=== PATIENT | male | born 1995 | race Caucasian/White ===

== ENCOUNTER 2019-03-26 17:59 | Emergency (ER) | payer OTHER ==
[~2019-03-26] VITALS: Ht 172.7 cm; Wt 80.7 kg
[2019-03-26 18:02] VITALS: Ht 172.7 cm; Wt 80.7 kg
[2019-03-26] MEDS ORDERED: KETOROLAC 30 MG INJ IV STA (18:30)
[2019-03-26] MEDS ORDERED: IBUP-1542 PO (20:54)
[2019-03-26] MEDS ORDERED: CYCL10TA7 PO (20:54)
--- NOTE | 2019-03-26 20:58 | ERD ---
ER Documentation Chief Complaint Chief Complaint SHOOTING/SHARP PAIN AT THE BACK; LOWER ABDOMINAL PAIN HPI 23-year-old male presents with 2-week history of worsening low back pain rating to right leg but he also has right lower quadrant abdominal pain. He denies fevers, vomiting, urinary complaints. Denies any weakness, deficits, bowel or bladder incontinence, saddle anesthesia. ROS All systems reviewed and are negative except as per history of present illness. Medications Home Meds Active Scripts Cyclobenzaprine Hcl* (Cyclobenzaprine Hcl*) 10 Mg Tablet, 10 MG PO TID, #20 TAB Prov:SARAHI SEAMAN MD 03/26/19 Ibuprofen* (Motrin*) 600 Mg Tab, 600 MG PO Q6, #30 TAB Prov:SARAHI SEAMAN MD 03/26/19 Allergies Allergies: Coded Allergies: lidocaine (Verified Allergy, Unknown, 03/26/19) PMhx/Soc Medical and Surgical Hx: pt denies Medical Hx, pt denies Surgical Hx History of Surgery: No Anesthesia Reaction: No Hx Neurological Disorder: No Hx Respiratory Disorders: No Hx Cardiac Disorders: No Hx Psychiatric Problems: No Hx Miscellaneous Medical Probl: No Hx Alcohol Use: Yes (OCASSIONALLY) Hx Substance Use: Yes (MARIJUANA) Hx Tobacco Use: No Smoking Status: Current every day smoker FmHx Family History: No diabetes, No coronary disease, No other Physical Exam Vitals Vital Signs Date Temp Pulse Resp B/P (MAP) Pulse Ox O2 O2 Flow FiO2 Time Delivery Rate 03/26/19 98.2 83 19 131/70 96 18:02 (90) Physical Exam Const: No acute distress Head: Atraumatic Eyes: Normal Conjunctiva ENT: Normal External Ears, Nose and Mouth. Neck: Full range of motion. No meningismus. Resp: Clear to auscultation bilaterally Cardio: Regular rate and rhythm, no murmurs Abd: Soft, non tender, non distended. Normal bowel sounds in the right lower quadrant. No appreciable hernias. Testicles nontender normal size bilaterally. Skin: No petechiae or rashes Back: No midline or flank tenderness tender right lower L4-L5 area with spasm. Positive straight leg raise. Ext: No cyanosis, or edema Neur: Awake and alert Psych: Normal Mood and Affect Result Diagram: 5/30/19 1842 5/30/19 1842 Results 24 hrs Laboratory Tests Test 03/26/19 18:42 White Blood Count 8.1 10^3/ul Red Blood Count 5.32 10^6/ul Hemoglobin 15.5 g/dl Hematocrit 47.5 % Mean Corpuscular Volume 89.3 fl Mean Corpuscular Hemoglobin 29.1 pg Mean Corpuscular Hemoglobin Concent 32.6 g/dl Red Cell Distribution Width 12.6 % Platelet Count 229 10^3/UL Mean Platelet Volume 10.1 fl Immature Granulocytes % 0.400 % Neutrophils % 75.7 % Lymphocytes % 16.7 % Monocytes % 5.4 % Eosinophils % 1.4 % Basophils % 0.4 % Nucleated Red Blood Cells % 0.0 /100WBC Immature Granulocytes # 0.030 10^3/ul Neutrophils # 6.1 10^3/ul Lymphocytes # 1.4 10^3/ul Monocytes # 0.4 10^3/ul Eosinophils # 0.1 10^3/ul Basophils # 0.0 10^3/ul Nucleated Red Blood Cells # 0.0 10^3/ul Urine Color STRAW Urine Clarity CLEAR Urine pH 6.0 Urine Specific [place] 1.004 Urine Ketones NEGATIVE mg/dL Urine Nitrite NEGATIVE mg/dL Urine Bilirubin NEGATIVE mg/dL Urine Urobilinogen NEGATIVE mg/dL Urine Leukocyte Esterase NEGATIVE [place]/ul Urine Hemoglobin NEGATIVE mg/dL Urine Glucose NEGATIVE mg/dL Urine Total Protein NEGATIVE mg/dl Sodium Level 141 mmol/L Potassium Level 4.2 mmol/L Chloride Level 103 mmol/L Carbon Dioxide Level 27 mmol/L Anion Gap 11 Blood Urea Nitrogen 14 mg/dl Creatinine 0.89 mg/dl Est Glomerular Filtrat Rate mL/min > 60 mL/min Glucose Level 101 mg/dl Calcium Level 10.1 mg/dl Total Bilirubin 0.8 mg/dl Direct Bilirubin 0.00 mg/dl Indirect Bilirubin 0.8 mg/dl Aspartate Amino Transf (AST/SGOT) 24 IU/L Alanine Aminotransferase (ALT/SGPT) 20 IU/L Alkaline Phosphatase 83 IU/L Total Protein 8.4 g/dl Albumin 5.0 g/dl Globulin 3.40 g/dl Albumin/Globulin Ratio 1.47 Lipase 88 U/L Current Medications Medications Dose Sig/Maria Victoria Start Time Status Last (Trade) Ordered Route PRN Stop Time Admin Dose Reason Admin Ketorolac 30 mg ONCE STAT 03/26/19 DC 03/26/19 Tromethamine IV 18:30 19:07 (Toradol) 03/26/19 18:31 Procedures/MDM Patient presents with right lower back pain rating right leg. Also has right lower quadrant abdominal pain of uncertain etiology. Pain is for 2 weeks duration. CBC and CMP normal. Urine negative. CT abdomen pelvis read as normal by the radiologist. Patient given Toradol 30 mg IV. Patient presents with signs and symptoms of likely referred back pain to the right lower abdomen as well as sciatica. He has no signs of cauda equina syndrome, epidural abscess, abscess, fracture, dislocation, surgical abdomen. He will be treated with ibuprofen, Flexeril, instructions on back exercises, primary care follow-up and return precautions. The patient was stable with no new complaints during the ER course. Clinically, there is no current evidence to suggest meningitis, sepsis, acute abdomen, pneumonia, stroke, acute coronary syndrome, pulmonary embolism, aortic dissection or any other emergent condition appearing to require further evaluation or hospitalization. Patient counseled regarding my diagnostic impression and care plan. Prior to discharge all questions answered. Pt agrees with treatment plan and understands strict return precautions. Pt is instructed to follow up with primary care provider within 24-48 hours. Precautionary instructions provided including instructions to return to the ER if not improving or for any worsening or changing symptoms or concerns. Disclaimer: Inadvertent spelling and grammatical errors are likely due to EHR/di ctation software use and do not reflect on the overall quality of patient care. Also, please note that the electronic time recorded on this note does not necessarily reflect the actual time of the patient encounter. Departure Diagnosis: Primary Impression: Abdominal pain Abdominal location: right lower quadrant Qualified Codes: R10.31 - Right lower quadrant pain Additional Impression: Back pain Back pain location: low back pain Chronicity: acute Back pain laterality: right Sciatica presence: with sciatica Sciatica laterality: sciatica of right side Qualified Codes: M54.41 - Lumbago with sciatica, right side Condition: Stable Patient Instructions: Abdominal Pain, Back Exercises, Lumbar, Back Pain W/ Sciatica [facility] Usted se alvarenga hecho un examen mdico de control que le indica que no est en ailyn condicin que requiera tratamiento urgente en el Departamento de Emergencia. Un estudio ms profundo y el tratamiento de curiel condicin pueden esperar sin ningn riesgo hasta que usted sea atendida/o en el consultorio de curiel mdico o ailyn clnica. Es responsabilidad suya arreglar ailyn di para el seguimiento del alena. MANEJO DE CONDICIONES NO URGENTES EN EL FUTURO 1) Si usted tiene un mdico de atencin primaria: Usted debera llamar a curiel mdico de atencin primaria antes de venir al departamento de emergencia. Despus de las horas de consultorio, curiel doctor o curiel asociado/a est disponible por telfono. El mdico o enfermero de pallavi en el servicio telefnico puede asesorarle por romana medio para atender el problema, o alena contrario se puede programar ailyn di. 2) Si usted no tiene un mdico de atencin primaria: Llame al mdico o clnica de referencia que aparece abajo blanca las horas de consultorio para hacer ailyn di para que le vean. CLINICAS: [facility] [phone] [facility] [facility] [place] [phone] [facility] [phone] [facility] [phone] [place] [id number] [phone] [facility]. [phone] [address] Additional Instructions: All examinations normal today. Likely referred pain from back. Recommend exercises at home and primary care follow-up. Recheck for fevers, vomiting, new worsening symptoms. SARAHI SEAMAN MD March 26, 2019 20:58
[2019-03-26 21:19] VITALS: BP 138/88; PULSE 85; RESP 18
== END 2019-03-26 21:20 | disposition home or self-care (01) ==
LOC: FTE 17:59
DX: M54.41 Lumbago with sciatica, right side (principal); R10.31 Right lower quadrant pain; F17.210 Nicotine dependence, cigarettes, uncomplicated
CPT/HCPCS: 74176; 80053; 81003; 83690; 85025; J1885; 36415; 96374